=== PATIENT | male | born 1995 | race Hispanic/Latino ===

== ENCOUNTER 2018-02-24 18:39 | Emergency (ER) | payer OTHER, SELFPAY ==
--- NOTE | 2018-02-24 19:54 | RAD REPORT ---
EXAM DESCRIPTION: CT - Head Brain Wo Cont - 02/24/2018 7:39 pm CLINICAL HISTORY: Headache COMPARISON: None. TECHNIQUE: Computed axial tomography of the head was obtained. IV contrast was not requested. All CT scans are performed using dose optimization technique as appropriate and may include automated exposure control or mA/KV adjustment according to patient size. FINDINGS: An intracranial bleed is not seen . The ventricles are normal in caliber. No extra-axial fluid collection is noted. Fluid within the sinuses/ mastoids is not seen. IMPRESSION: No acute intracranial abnormality is seen. If patient's symptoms persist MRI of the bra in would be recommended.
[2018-02-24] MEDS ORDERED: METOCLOPRAMIDE 10 MG/2mL INJ ONE (20:11)
[2018-02-24] MEDS ORDERED: KETOROLAC 30 MG/ML INJ ONE (20:11)
[2018-02-24] MEDS ORDERED: DIPHENHYDRAMINE 50 MG/ML VIAL ONE (20:11)
[2018-02-24] MEDS ORDERED: NA CHLORIDE 0.9% 1,000 ML ONE (20:11)
--- NOTE | 2018-02-24 20:42 | ER ---
Nurse's Notes [facility] Name: Adrián Guadalupe Age: 22 yrs Sex: Male : 1995 Arrival Date: 02/24/2018 Time: 18:40 Bed 16 Private MD: Diagnosis: Headache Presentation: 02/24 19:00 Presenting complaint: Patient states: " I have migraines and I have a really bad one ph right know. The pain goes down the L side of my head and into my neck and chest." Pt reports headache x 3 days, nausea, sensitivity to light and sound. Transition of care: patient was not received from another setting of care. Onset of symptoms was February 24, 2018. Risk Assessment: Do you want to hurt yourself or someone else? Patient reports no desire to harm self or others. Initial Sepsis Screen: Does the patient meet any 2 criteria? No. Patient's initial sepsis screen is negative. Does the patient have a suspected source of infection? No. Patient's initial sepsis screen is negative. Care prior to arrival: None. 19:00 Method Of Arrival: Ambulatory ph 19:00 Acuity: SILVIA 3 ph Triage Assessment: 20:57 Headache History: The patient has had previous headaches and this one is similar to mb3 previous episodes. General: Appears distressed, uncomfortable, obese. Pain: Pain currently is 0 out of 10 on a pain scale. Pain began 2-3 days ago. Also complains of photophobia. Historical: - Allergies: 19:03 No Known Allergies; ph - Home Meds: 19:03 None [Active]; ph - PMHx: 19:03 Migraines; palpitations; cardiomegaly; Asthma; ph - PSHx: 19:03 None; ph - Immunization history:: Adult Immunizations up to date. - Social history:: Smoking status: Patient/guardian denies using tobacco. - Ebola Screening: : Patient denies travel to an Ebola-affected area in the 21 days before illness onset No symptoms or risks identified at this time. Screenin:55 Abuse screen: Denies threats or abuse. Nutritional screening: No deficits noted. mb3 Tuberculosis screening: No symptoms or risk factors identified. Fall Risk None identified. Assessment: 20:35 General: Appears distressed, obese, well groomed, Behavior is calm, cooperative, mb3 appropriate for age. Pain: Complains of pain in forehead and left protestant Pain radiates to back of neck and scalp. Neuro: Level of Consciousness is awake, alert, obeys commands, Oriented to person, place, time, situation, Osteopathic Physician are equal bilaterally Moves all extremities. Full function Gait is steady. Cardiovascular: No deficits noted. Heart tones S1 S2 present Capillary refill < 3 seconds Patient's skin is warm and dry. Respiratory: Airway is patent Respiratory effort is even, unlabored, Respiratory pattern is regular, symmetrical. GI: No signs and/or symptoms were reported involving the gastrointestinal system. : No signs and/or symptoms were reported regarding the genitourinary system. EENT: No signs and/or symptoms were reported regarding the EENT system. Derm: No signs and/or symptoms reported regarding the dermatologic system. 20:53 Reassessment: Patient appears in no apparent distress at this time. Patient and/or mb3 family updated on plan of care and expected duration. Pain level reassessed. Patient is alert, oriented x 3, equal unlabored respirations, skin warm/dry/pink. Patient denies pain at this time. Patient states feeling better. Patient states symptoms have improved. Vital Signs: 19:03 BP 156 / 93; Pulse 81; Resp 18; Temp 99.5; Pulse Ox 98% on R/A; Weight 113.4 kg; Height ph 5 ft. 8 in. (172.72 cm); Pain 9/10; 20:53 BP 137 / 81; Pulse 77; Resp 16; Pulse Ox 98% on R/A; Pain 0/10; mb3 19:03 Body Mass Index 38.01 (113.40 kg, 172.72 cm) ph ED Course: 18:40 Patient arrived in ED. es 19:02 Triage completed. ph 19:03 Arm band placed on. ph 19:07 John Blanco, KASEY is Primary Nurse. mb3 19:10 Mt Figueroa NP is PHCP. pm1 19:10 Rolly Stevens MD is Attending Physician. pm1 19:22 Inserted saline lock: 20 gauge in left forearm, using aseptic technique. Blood mb3 collected. 19:38 CT completed. Patient moved to CT via wheelchair. Patient moved back from CT. cw1 19:39 CT Head Brain wo Cont In Process Unspecified. EDMS 20:56 No provider procedures requiring assistance completed. IV discontinued, intact, mb3 bleeding controlled, No redness/swelling at site. Pressure dressing applied. 20:58 Patient has correct armband on for positive identification. mb3 Administered Medications: 20:15 Drug: NS 0.9% 1000 ml Route: IV; Rate: 1000 ml; Site: left forearm; mb3 20:52 Follow up: Response: No adverse reaction; IV Status: Completed infusion; IV Intake: mb3 1000ml 20:15 Drug: Benadryl 12.5 mg Route: IVP; Site: left forearm; mb3 20:52 Follow up: Response: No adverse reaction; Pain is decreased mb3 20:15 Drug: Reglan 10 mg Route: IVP; Site: left forearm; mb3 20:52 Follow up: Response: No adverse reaction; Pain is decreased mb3 20:15 Drug: TORadol 30 mg Route: IVP; Site: left forearm; mb3 20:51 Follow up: Response: No adverse reaction; Pain is decreased mb3 Intake: 20:52 IV: 1000ml; Total: 1000ml. mb3 Outcome: 20:42 Discharge ordered by . pm1 20:59 Discharged to home ambulatory, with family. mb3 20:59 Condition: stable 20:59 Discharge instructions given to patient, family, Instructed on discharge instructions, follow up and referral plans. medication usage, Demonstrated understanding of instructions, follow-up care, medications, Prescriptions given X 2. 21:00 Patient left the ED. mb3 Signatures: Dispatcher [employer] Delilah Simon Crystal cw1 Thais Wallace, KASEY RN Mt Chavez NP ART GLASS SETTER pm1 John Blanco RN RN mb3
--- NOTE | 2018-02-24 20:42 | EDPHYS ---
Physician Documentation [facility] Name: Adrián Guadalupe Age: 22 yrs Sex: Male : 1995 Arrival Date: 02/24/2018 Time: 18:40 Bed 16 Private MD: ED Physician Rolly Stevens HPI: 02/24 21:00 This 22 yrs old Male presents to ER via Ambulatory with complaints of Headache.pm1 21:00 The patient complains of pain to the forehead, left church and left occipital area. The pm1 patient describes the headache as aching. Onset: The symptoms/episode began/occurred 3 day(s) ago. Associated signs and symptoms: Pertinent positives: nausea, Photophobia Pertinent negatives: fever, rash, vomiting. Severity of symptoms: in the emergency department the pain is actually worse. Headache History: The patient has had previous headaches and this one is similar to previous episodes, and this one is more severe than previous episodes. The patient has experienced similar episodes in the past, several times. The patient has not recently seen a physician. Historical: - Allergies: 19:03 No Known Allergies; ph - Home Meds: 19:03 None [Active]; ph - PMHx: 19:03 Migraines; palpitations; cardiomegaly; Asthma; ph - PSHx: 19:03 None; ph - Immunization history:: Adult Immunizations up to date. - Social history:: Smoking status: Patient/guardian denies using tobacco. - Ebola Screening: : Patient denies travel to an Ebola-affected area in the 21 days before illness onset No symptoms or risks identified at this time. ROS: 21:00 Constitutional: Negative for fever, chills, and weight loss, Eyes: Negative for injury, pm1 pain, redness, and discharge, ENT: Negative for injury, pain, and discharge, Neck: Negative for injury, pain, and swelling, Cardiovascular: Negative for chest pain, palpitations, and edema, Respiratory: Negative for shortness of breath, cough, wheezing, and pleuritic chest pain, Abdomen/GI: Negative for abdominal pain, nausea, vomiting, diarrhea, and constipation, Back: Negative for injury and pain, MS/Extremity: Negative for injury and deformity, Skin: Negative for injury, rash, and discoloration. 21:00 Neuro: Positive for headache, of the left church and forehead and left occipital area. Exam: 21:00 Constitutional: This is a well developed, well nourished patient who is awake, alert, pm1 and in no acute distress. Head/Face: Normocephalic, atraumatic. Eyes: Pupils equal round and reactive to light, extra-ocular motions intact. Lids and lashes normal. Conjunctiva and sclera are non-icteric and not injected. Cornea within normal limits. Periorbital areas with no swelling, redness, or edema. ENT: Nares patent. No nasal discharge, no septal abnormalities noted. Tympanic membranes are normal and external auditory canals are clear. Oropharynx with no redness, swelling, or masses, exudates, or evidence of obstruction, uvula midline. Mucous membranes moist. Neck: Trachea midline, no thyromegaly or masses palpated, and no cervical lymphadenopathy. Supple, full range of motion without nuchal rigidity, or vertebral point tenderness. No Meningismus. Chest/axilla: Normal chest wall appearance and motion. Nontender with no deformity. No lesions are appreciated. Cardiovascular: Regular rate and rhythm with a normal S1 and S2. No gallops, murmurs, or rubs. Normal PMI, no JVD. No pulse deficits. Respiratory: Lungs have equal breath sounds bilaterally, clear to auscultation and percussion. No rales, rhonchi or wheezes noted. No increased work of breathing, no retractions or nasal flaring. Abdomen/GI: Soft, non-tender, with normal bowel sounds. No distension or tympany. No guarding or rebound. No evidence of tenderness throughout. Back: No spinal tenderness. No costovertebral tenderness. Full range of motion. Skin: Warm, dry with normal turgor. Normal color with no rashes, no lesions, and no evidence of cellulitis. MS/ Extremity: Pulses equal, no cyanosis. Neurovascular intact. Full, normal range of motion. 21:00 Head/face: Noted is tenderness, of the forehead, left church, left temporal area and left occipital area. 21:00 Neuro: Orientation: is normal, Cranial nerves: CN II- XII are normal as tested, Cerebellar function: normal finger to nose testing, Motor: moves all fours, strength is normal, strength is 5/5 in all extremities, Sensation: is normal, no obvious gross deficits, Gait: is steady, at a normal pace, without difficulty. Vital Signs: 19:03 BP 156 / 93; Pulse 81; Resp 18; Temp 99.5; Pulse Ox 98% on R/A; Weight 113.4 kg; Height ph 5 ft. 8 in. (172.72 cm); Pain 9/10; 20:53 BP 137 / 81; Pulse 77; Resp 16; Pulse Ox 98% on R/A; Pain 0/10; mb3 19:03 Body Mass Index 38.01 (113.40 kg, 172.72 cm) ph MDM: 19:15 Patient medically screened. [email or web address] 20:41 Data reviewed: vital signs. Data interpreted: Pulse oximetry: on room air is 98 %. pm1 Interpretation: normal. Counseling: I had a detailed discussion with the patient and/or guardian regarding: the historical points, exam findings, and any diagnostic results supporting the discharge/admit diagnosis, radiology results, the need for outpatient follow up, to return to the emergency department if symptoms worsen or persist or if there are any questions or concerns that arise at home. 02/24 19:29 Order name: CT Head Brain wo Cont; Complete Time: 19:58 pm1 02/24 19:59 Order name: IV Saline Lock; Complete Time: 20:08 pm1 Administered Medications: 20:15 Drug: NS 0.9% 1000 ml Route: IV; Rate: 1000 ml; Site: left forearm; mb3 20:52 Follow up: Response: No adverse reaction; IV Status: Completed infusion; IV Intake: mb3 1000ml 20:15 Drug: Benadryl 12.5 mg Route: IVP; Site: left forearm; mb3 20:52 Follow up: Response: No adverse reaction; Pain is decreased mb3 20:15 Drug: Reglan 10 mg Route: IVP; Site: left forearm; mb3 20:52 Follow up: Response: No adverse reaction; Pain is decreased mb3 20:15 Drug: TORadol 30 mg Route: IVP; Site: left forearm; mb3 20:51 Follow up: Response: No adverse reaction; Pain is decreased mb3 Disposition: 02/25 09:35 Co-signature as Attending Physician, Rolly Stevens MD I agree with the assessment and [facility] plan of care. Disposition: 02/24/18 20:42 Discharged to Home. Impression: Headache. - Condition is Stable. - Discharge Instructions: General Headache Without Cause. - Prescriptions for Naprosyn 500 mg Oral Tablet - take 1 tablet by ORAL route 2 times per day take with food; 30 tablet. Cyclobenzaprine 10 mg Oral Tablet - take 1 tablet by ORAL route every 8 hours As needed; 30 tablet. - Medication Reconciliation Form, Thank You Letter form. - Follow up: Emergency Department; When: As needed; Reason: Worsening of condition. Follow up: Private Physician; When: 2 - 3 days; Reason: Recheck today's complaints, Continuance of care, Re-evaluation by your physician. - Problem is new. - Symptoms have improved. Signatures: Dispatcher [employer] EDMS Rolly Stevens MD MD cha Hall, Patricia, RN RN ph Mt Figueroa, MEDIA SERVICES COORDINATOR MEDIA SERVICES COORDINATOR pm1 John Blanco RN RN mb3 Corrections: (The following items were deleted from the chart) 02/24 21:00 20:42 02/24/2018 20:42 Discharged to Home. Impression: Headache. Condition is Stable. mb3 Forms are Medication Reconciliation Form, Thank You Letter, Antibiotic Education, Prescription Opioid Use. Follow up: Emergency Department; When: As needed; Reason: Worsening of condition. Follow up: Private Physician; When: 2 - 3 days; Reason: Recheck today's complaints, Continuance of care, Re-evaluation by your physician. Problem is new. Symptoms have improved. pm1
== END 2018-02-24 21:00 | disposition home or self-care (01) ==
LOC: ER 18:39
DX: R51 Headache (principal)
CPT/HCPCS: 70450; 96361; 96374; 96375; 99284; J2765; J7030

== ENCOUNTER 2018-11-18 07:16 | Emergency (ER) | payer SELFPAY ==
[2018-11-18] MEDS ORDERED: ONDANSETRON 4 MG (ODT) TAB ONE (07:45)
[2018-11-18] MEDS ORDERED: IBUPROFEN 200 MG TAB PO ONE (07:45)
[2018-11-18] MEDS ORDERED: IBUPROFEN 400 MG TAB ONE (07:45)
[2018-11-18] MEDS ORDERED: NA CHLORIDE 0.9% 1,000 ML ONE (07:53)
[2018-11-18 08:27] LABS: ALT/SGPT 47 U/L (12-78); AST/SGOT 21 U/L (15-37); Albumin 3.9 g/dL (3.4-5.0); Alkaline Phosphatase 85 U/L (45-117); BUN Blood Urea Nitrogen 9 mg/dL (7-18); Bicarbonate 25 mmol/L (21-32); Bilirubin Total 1.1 mg/dL (0.2-1.0); Glucose Level 122 mg/dL (74-106); Potassium 3.7 mmol/L (3.5-5.1); Protein, Total 8.1 g/dL (6.4-8.2); Sodium Level 136 mmol/L (136-145)
[2018-11-18 08:30] LABS: Absolute Lymphocytes (CBC) 0.7 K/uL (0.7-4.9); Absolute Monocytes 0.9 K/uL (0.1-1.3); Absolute Neutrophil 6.7 K/uL (1.8-8.0); Basophils % 1.2 % (0-1.3); Eosinophils % 1.9 % (0-4.4); Hematocrit 49.3 % (39.6-49.0); Lymphocytes % 8.4 % (15.3-44.8); MPV 9.7 fL (7.6-11.3); Monocytes % 10.3 % (3.3-12.3); RBC Red Blood Cell Count 5.78 M/uL (4.33-5.43)
--- NOTE | 2018-11-18 08:31 | RAD REPORT ---
EXAM DESCRIPTION: RAD - Chest Pa And Lat (2 Views) - 11/18/2018 8:03 am CLINICAL HISTORY: fever, cough Chest pain. COMPARISON: No comparisons FINDINGS: The lungs are clear. The heart is normal in size. No displaced fractures. IMPRESSION: No acute or concerning finding suspected.
--- NOTE | 2018-11-18 08:50 | ER ---
Nurse's Notes [facility] Name: Adrián Guadalupe Age: 23 yrs Sex: Male : 1995 Arrival Date: 11/18/2018 Time: 07:18 Bed 20 Private MD: Diagnosis: Influenza due to certain identified influenza viruses Presentation: 11/18 07:25 Presenting complaint: Headache, body aches, N/V/D, SOB, chills, and sore throat x 2 hb days. Tolerating small amounts of water. Transition of care: patient was not received from another setting of care. Onset of symptoms was November 17, 2018. 07:25 Method Of Arrival: Ambulatory hb 07:25 Acuity: SILVIA 3 hb 07:26 Initial Sepsis Screen: Does the patient meet any 2 criteria?. tw2 07:26 Risk Assessment: Do you want to hurt yourself or someone else? Patient reports no tw2 desire to harm self or others. Care prior to arrival: None. 07:52 Initial Sepsis Screen: Does the patient meet any 2 criteria? HR > 90 bpm. No. Patient's tw2 initial sepsis screen is negative. Does the patient have a suspected source of infection? Yes: Productive cough/pneumonia. Triage Assessment: 07:52 General: Appears in no apparent distress. Behavior is calm, cooperative, appropriate tw2 for age. Historical: - Allergies: 07:25 No Known Allergies; tw2 - PMHx: 07:25 Migraines; palpitations; cardiomegaly; Asthma; tw2 - PSHx: 07:25 None; tw2 - Immunization history:: Adult Immunizations up to date. - Social history:: Smoking status: . - Ebola Screening: : Patient denies travel to an Ebola-affected area in the 21 days before illness onset. Screenin:24 Abuse screen: Denies threats or abuse. Nutritional screening: No deficits noted. tw2 Tuberculosis screening: No symptoms or risk factors identified. Fall Risk None identified. Assessment: 07:28 Reassessment: provider at bedside at this time. tw2 07:51 Pain: Complains of pain in throat. Neuro: Level of Consciousness is awake, alert, obeys tw2 commands, Oriented to person, place, time, situation. Cardiovascular: Capillary refill < 3 seconds Patient's skin is warm and dry. Respiratory: Reports cough that is Airway is patent Respiratory effort is even, unlabored, Respiratory pattern is regular, symmetrical, Breath sounds are clear bilaterally. GI: Reports nausea, Patient currently denies vomiting. : No signs and/or symptoms were reported regarding the genitourinary system. EENT: Reports nasal congestion nasal discharge. Derm: No signs and/or symptoms reported regarding the dermatologic system. Musculoskeletal: Range of motion: intact in all extremities. 08:25 Reassessment: Patient appears in no apparent distress at this time. No changes from tw2 previously documented assessment. Patient and/or family updated on plan of care and expected duration. Pain level reassessed. Patient is alert, oriented x 3, equal unlabored respirations, skin warm/dry/pink. 08:47 Reassessment: pt states he would rather not finish his fluids, provider notified. tw2 09:03 Reassessment: Patient appears in no apparent distress at this time. No changes from tw2 previously documented assessment. Patient and/or family updated on plan of care and expected duration. Pain level reassessed. Patient is alert, oriented x 3, equal unlabored respirations, skin warm/dry/pink. Vital Signs: 07:29 BP 126 / 83; Pulse 132; Resp 18; Temp 100.8(TE); Pulse Ox 100% on R/A; Pain 8/10; hb 07:38 BP 123 / 86; Pulse 125; Resp 19; Pulse Ox 97% on R/A; tw2 07:50 Pulse 96; tw2 08:25 BP 123 / 70; Pulse 103; Resp 18; Temp 100.7(O); Pulse Ox 95% on R/A; tw2 ED Course: 07:18 Patient arrived in ED. as 07:24 Catarina Nails, RN is Primary Nurse. tw2 07:24 Bed in low position. Call light in reach. Pulse ox on. NIBP on. tw2 07:25 Medhat Palmer PA is PHCP. [email or web address] 07:25 Rolly Stevens MD is Attending Physician. jmm 07:26 Arm band placed on. tw2 07:29 Triage completed. hb 07:38 Flu Sent. tw2 07:49 Inserted saline lock: 22 gauge in right antecubital area, using aseptic technique. tw2 Blood collected. 07:57 Patient moved to radiology via wheelchair. jb2 08:05 Chest Pa And Lat (2 Views) XRAY In Process Unspecified. EDMS 09:04 No provider procedures requiring assistance completed. IV discontinued, intact, tw2 bleeding controlled, No redness/swelling at site. Pressure dressing applied. Administered Medications: 07:36 Drug: Motrin 600 mg Route: PO; tw2 09:03 Follow up: Response: No adverse reaction tw2 07:38 Drug: Zofran 4 mg Route: PO; tw2 09:03 Follow up: Response: No adverse reaction tw2 07:49 Drug: NS 0.9% 1000 ml Route: IV; Rate: 1000 ml; Site: right antecubital; tw2 09:02 Follow up: Response: No adverse reaction; IV Status: Order to discontinue infusion; IV tw2 Intake: 500ml Intake: 09:02 IV: 500ml; Total: 500ml. tw2 Outcome: 08:50 Discharge ordered by MD. siva 09:05 Discharged to home ambulatory, with family. tw2 09:05 Condition: stable 09:05 Discharge instructions given to patient, family, Instructed on discharge instructions, follow up and referral plans. medication usage, Demonstrated understanding of instructions, follow-up care, medications, Prescriptions given X 2. 09:05 Patient left the ED. tw2 Signatures: Dispatcher [employer] EDMS Medhat Palmer PA PA Mushtaq Churchill jbRoxann Ronquillo Heather, KASEY RN Catarina Nails RN RN tw2 Corrections: (The following items were deleted from the chart) 07:29 07:25 Acuity: SILVIA 3 hb hb 07:42 07:25 Acuity: SILVIA 4 hb hb
--- NOTE | 2018-11-18 08:51 | EDPHYS ---
Physician Documentation [facility] Name: Adrián Guadalupe Age: 23 yrs Sex: Male : 1995 Arrival Date: 11/18/2018 Time: 07:18 Bed 20 Private MD: ED Physician Rolly Stevens HPI: 11/18 07:35 This 23 yrs old Male presents to ER via Ambulatory with complaints of Flu jmm Symptoms. 07:35 The patient or guardian reports cough. Onset: The symptoms/episode began/occurred jmm gradually, 2 day(s) ago. Modifying factors: The symptoms are alleviated by nothing. the symptoms are aggravated by nothing. Associated signs and symptoms: Pertinent positives: cough, shortness of breath, vomiting. This is a 23 year old male with a history of asthma that presents to the ED with complaints of cough, congestion, vomiting worsening last night. Mother states the patient's relatives have similar symptoms. . Historical: - Allergies: 07:25 No Known Allergies; tw2 - PMHx: 07:25 Migraines; palpitations; cardiomegaly; Asthma; tw2 - PSHx: 07:25 None; tw2 - Immunization history:: Adult Immunizations up to date. - Social history:: Smoking status: . - Ebola Screening: : Patient denies travel to an Ebola-affected area in the 21 days before illness onset. ROS: 07:35 Cardiovascular: Negative for chest pain, palpitations, and edema. jmm 07:35 Constitutional: Positive for fever. 07:35 Respiratory: Positive for cough. 07:35 Abdomen/GI: Positive for vomiting. 07:35 All other systems are negative. Exam: 07:35 Constitutional: This is a well developed, well nourished patient who is awake, alert, jmm and in no acute distress. Head/Face: atraumatic. Eyes: EOMI, no conjunctival erythema appreciated ENT: Moist Mucus Membranes Neck: Trachea midline, Supple Chest/axilla: Normal chest wall appearance and motion. 07:35 Cardiovascular: Rate: tachycardic, Rhythm: regular. 07:35 Respiratory: the patient does not display signs of respiratory distress, Respirations: normal, Breath sounds: are clear throughout. 07:35 Abdomen/GI: Inspection: abdomen appears normal, Bowel sounds: normal, Palpation: abdomen is soft and non-tender, in all quadrants. 07:35 Back: ROM is normal. 07:35 Musculoskeletal/extremity: ROM: intact in all extremities. 07:35 Skin: Appearance: Color: normal in color. 07:35 Neuro: Orientation: is normal, Mentation: is normal, Memory: is normal. 07:35 Psych: Behavior/mood is pleasant, cooperative. Vital Signs: 07:29 BP 126 / 83; Pulse 132; Resp 18; Temp 100.8(TE); Pulse Ox 100% on R/A; Pain 8/10; hb 07:38 BP 123 / 86; Pulse 125; Resp 19; Pulse Ox 97% on R/A; tw2 07:50 Pulse 96; tw2 08:25 BP 123 / 70; Pulse 103; Resp 18; Temp 100.7(O); Pulse Ox 95% on R/A; tw2 MDM: 07:27 Patient medically screened. [facility] 08:48 Data reviewed: vital signs, nurses notes. Data interpreted: Pulse oximetry: on room air jm is 95 %. Counseling: I had a detailed discussion with the patient and/or guardian regarding: the historical points, exam findings, and any diagnostic results supporting the discharge/admit diagnosis, lab results, radiology results, the need for outpatient follow up, to return to the emergency department if symptoms worsen or persist or if there are any questions or concerns that arise at home. ED course: Patient is alert and non toxic in appearance in the ED. No signs of resp distress. Patient given return precautions. Patient understood and agrees with the plan of care. . 11/18 07:28 Order name: Flu; Complete Time: 08:28 [facility] 11/18 07:38 Order name: CBC with Diff; Complete Time: 08:36 [facility] 11/18 07:35 Order name: Chest Pa And Lat (2 Views) XRAY; Complete Time: 08:36 [facility] 11/18 07:38 Order name: CMP; Complete Time: 08:28 [facility] 11/18 07:38 Order name: Saline Lock; Complete Time: 07:50 jm Administered Medications: 07:36 Drug: Motrin 600 mg Route: PO; tw2 09:03 Follow up: Response: No adverse reaction tw2 07:38 Drug: Zofran 4 mg Route: PO; tw2 09:03 Follow up: Response: No adverse reaction tw2 07:49 Drug: NS 0.9% 1000 ml Route: IV; Rate: 1000 ml; Site: right antecubital; tw2 09:02 Follow up: Response: No adverse reaction; IV Status: Order to discontinue infusion; IV tw2 Intake: 500ml Disposition: 16:40 Co-signature as Attending Physician, Rolly THAO I agree with the assessment and [facility] plan of care. Disposition: 11/18/18 08:50 Discharged to Home. Impression: Influenza due to certain identified influenza viruses. - Condition is Stable. - Discharge Instructions: Influenza, Adult. - Prescriptions for Zofran ODT 4 mg Oral tablet,disintegrating - place 1 tablet by TRANSLINGUAL route every 4 hours; 20 tablet. Tamiflu 75 mg Oral Capsule - take 1 tablet by ORAL route every 12 hours for 5 days; 10 tablet. - Medication Reconciliation Form, Thank You Letter, Antibiotic Education, Prescription Opioid Use, School release form, Family Work Release form. - Follow up: Private Physician; When: 2 - 3 days; Reason: Recheck today's complaints, Continuance of care, Re-evaluation by your physician. Signatures: Dispatcher [employer] EDRolly Martinez MD MD cha Mickail, Joel, PA PA Catarina Lopez, RN RN tw2 Corrections: (The following items were deleted from the chart) 09:05 08:50 11/18/2018 08:50 Discharged to Home. Impression: Influenza due to certain tw2 identified influenza viruses. Condition is Stable. Forms are School release form, Family Work Release, Medication Reconciliation Form, Thank You Letter, Antibiotic Education, Prescription Opioid Use. Follow up: Private Physician; When: 2 - 3 days; Reason: Recheck today's complaints, Continuance of care, Re-evaluation by your physician. siva
== END 2018-11-18 09:05 | disposition home or self-care (01) ==
LOC: ER 07:16
DX: J11.1 Influenza due to unidentified influenza virus with other respiratory manifestations (principal); J45.909 Unspecified asthma, uncomplicated
CPT/HCPCS: 36415; 71046; 80053; 85025; 87804; 96360; 99284; J7030